=== PATIENT | male | born 1995 | race Caucasian/White ===

== ENCOUNTER 2017-03-30 16:11 | Emergency (ER) ==
[~2017-03-30] VITALS: Ht 182.9 cm; Wt 107.3 kg
[2017-03-30 16:53] VITALS: BP 116/61; PULSE 110; TEMP 38.2; O2SAT 98; Ht 182.9 cm; Wt 107.3 kg
== END 2017-03-30 18:25 | disposition left against medical advice (07) ==
LOC: C.EDB 16:13
DX: R06.02 Shortness of breath (principal); R11.10 Vomiting, unspecified; R00.1 Bradycardia, unspecified